=== PATIENT | female | born 1960 | race Caucasian/White ===

== ENCOUNTER 2017-10-20 14:56 | Emergency (ER) | payer BC ==
[~2017-10-20] VITALS: Ht 162.6 cm; Wt 88.5 kg
[2017-10-20 15:03] VITALS: BP 108/68; PULSE 92; RESP 15; TEMP 98.2; O2SAT 99
[2017-10-20] MEDS ORDERED: TRAM50TA PO ×2 (18:42→18:47)
--- NOTE | 2017-10-20 18:46 | PD ---
HPI Chief Complaint: Pain: Acute or Chronic Time Seen by Provider: 18:38 Travel History International Travel<30 days: No Contact w/Intl Traveler<30days: No Traveled to known affect area: No History of Present Illness HPI 57-year-old female presents emergency department with ongoing back pain. She states she has history of fibromyalgia and chronic low back pain treated with tramadol 50 mg 3 times daily. Patient states she recently moved here from [place], which flared up her symptoms. She states she has been out of her medication for approximately 1 week. She states she thought she had an appointment with her primary care physician today but they are closed on Fridays. Patient denies fever, chills, urinary symptoms or weakness or numbness. She states this is a flareup of her typical back pain. She is requesting refill of her tramadol. Pain is currently about an 8 out of 10. She has allergies to penicillin and Duricef. NSAIDs upset her stomach. PFSH Social History Alcohol Use: Yes Tobacco Use: No Substance Use: No Review of Systems Except as stated in HPI: all other systems reviewed are Neg General / Constitutional: No: Fever Eyes: No: Visual changes HENT: No: Headaches Cardiovascular: No: Chest Pain or Discomfort Respiratory: No: Shortness of Breath Gastrointestinal: No: Abdominal Pain Genitourinary: No: Dysuria Musculoskeletal: Positive: Myalgias, Pain (See history of present illness) Skin: No Rash Neurologic: No: Weakness Psychiatric: No: Depression Endocrine: No: Polydipsia Hematologic/Lymphatic: No: Easy Bruising Physical Exam Narrative GENERAL: Patient appears in mild distress. SKIN: Warm and dry. Normal color. Normal turgor. HEAD: Atraumatic. Normocephalic. EYES: Pupils equal and round. No scleral icterus. No injection or drainage. ENT: No nasal bleeding or discharge. Mucous membranes pink and moist. NECK: Trachea midline. Pharynx is clear. Airways patent CARDIOVASCULAR: Regular rate and rhythm. RESPIRATORY: No accessory muscle use. Clear to auscultation. Breath sounds equal bilaterally. MUSCULOSKELETAL: Extremities without clubbing, cyanosis, or edema. No obvious deformities. Patient has generalized tenderness in the soft tissues of the lumbar spine. Negative straight leg raise pain. No bony tenderness or step- off. NEUROLOGICAL: Awake and alert. No obvious cranial nerve deficits. Motor grossly within normal limits. Five out of 5 muscle strength in the arms and legs. Normal speech. PSYCHIATRIC: Appropriate mood and affect; insight and judgment normal. Data Data Last Documented VS Vital Signs Date Time Temp Pulse Resp B/P (MAP) Pulse Ox O2 Delivery O2 Flow Rate FiO2 10/20/17 15:03 98.2 92 15 108/68 (81) 99 MDM Medical Decision Making Medical Screen Exam Complete: Yes Emergency Medical Condition: Yes Differential Diagnosis Lumbago. Medication refill. Fibromyalgia. Narrative Course Patient will be given tramadol 50 mg 3 times daily as needed pain #15. Patient to receive further refills from her primary care physician Diagnosis Primary Impression: Encounter for medication refill Additional Impression: Lumbago Qualified Codes: M54.5 - Low back pain; G89.29 - Other chronic pain Patient Instructions: General Instructions Additional Instructions: Patient will be given tramadol 50 mg 3 times daily as needed pain #15. Patient to receive further refills from her primary care physician Med/Other Pt SpecificInfo: Prescription(s) given Scripts Tramadol (Tramadol) 50 Mg Tab 50 MG PO Q8H Y for PAIN, #15 TAB 0 Refills Prov: Sun Brunner MD 10/20/17 Disposition: 01 DISCHARGE HOME Condition: Stable Guero Thomson Oct 20, 2017 18:46
== END 2017-10-20 19:07 | disposition home or self-care (01) ==
LOC: NEPK 14:56
DX: M54.5 Low back pain (principal); G89.29 Other chronic pain; Z76.0 Encounter for issue of repeat prescription
CPT/HCPCS: 99281